=== PATIENT | female | born 1970 | race Caucasian/White ===

== ENCOUNTER → 2024-04-23 | Outpatient (CLI) | payer OTHER ==
[~2024-04-23] MED LIST: CETIRIZINE10 MG PO; DIOVAN40 MG PO; Ondansetron4 MG PO; SINGULAIR10 M1 PO; VALIUM5 MG PO
[2024-04-23 11:28] LABS: BASO # 0.1 10*3/uL (0.0-0.1); BASO % 0.5 % (0.0-1.0); EOS # 0.1 10*3/uL (0.0-0.4); EOS % 0.5 % (1.0-4.0); HEMATOCRIT 38.6 % (37.0-47.0); MEAN CELL VOLUME 95.1 fl (81.0-99.0); MEAN CORPUSCULAR HGB 30.5 pg (27.0-31.0); MEAN CORPUSCULAR HGB CONC 32.1 g/dl (33.0-37.0); MEAN PLATELET VOLUME 10.3 fl (9.6-12.3); MONO # 0.7 10*3/uL (0.1-1.0); MONO % 6.4 % (3.0-9.0); NEUT # 7.4 10*3/uL (2.3-7.9); NEUT % 71.9 % (47.0-73.0); PLATELET COUNT AUTOMATED 459 10*3/uL (130-400); RED BLOOD COUNT 4.06 10*6/uL (4.10-5.10); WHITE BLOOD COUNT 10.2 10*3/uL (4.8-10.8)
[2024-04-23 11:46] LABS: BILIRUBIN Negative (Negative); BLOOD Negative (Negative); CLARITY Clear (Clear); COLOR Yellow (Yellow); GLUCOSE Negative (Negative); KETONE Negative (Negative); LEUKO ESTERASE Negative (Negative); NITRITE Negative (Negative); PH 6.5 (4.5-8.0)
[2024-04-23 12:00] LABS: ALKALINE PHOSPHATASE 364 U/L (46-116); BUN 11 mg/dl (9-23); CHLORIDE 102 mmol/L (98-107); LIPASE 59 U/L (12-53); POTASSIUM 3.3 mmol/L (3.4-5.1); RBC 0-2 rbc/hpf (0-2); SGPT/ALT 114 U/L (5-49); TOTAL PROTEIN 7.5 gm/dL (6.0-8.0); WBC 0-2 wbc/hpf (0-5)
[2024-04-24 05:05] LABS: HBsAG SCREEN Negative (Negative); HCV Ab Non Reactive (Non Reactive); HEP B CORE Ab, IgM Negative (Negative)
[2024-04-24 08:06] LABS: CYTOMEGALOVIRUS AB, IGG >10.00 U/mL (0.00-0.59)
== END | disposition home or self-care (01) ==
LOC: LAB 11:00
PROVIDERS: ATTEND Internal Medicine
DX: R53.83 Other fatigue (principal); R30.0 Dysuria; L29.9 Pruritus, unspecified; R51.9 Headache, unspecified

== ENCOUNTER → 2024-04-24 | Outpatient (CLI) | payer OTHER ==
[2024-04-24 08:47] LABS: ALKALINE PHOSPHATASE 335 U/L (46-116); BUN 11 mg/dl (9-23); CHLORIDE 105 mmol/L (98-107); LIPASE 49 U/L (12-53); POTASSIUM 3.2 mmol/L (3.4-5.1); SGPT/ALT 102 U/L (5-49); TOTAL PROTEIN 6.9 gm/dL (6.0-8.0)
== END | disposition home or self-care (01) ==
LOC: LAB 02:06
PROVIDERS: ATTEND Internal Medicine
DX: K80.20 Calculus of gallbladder without cholecystitis without obstruction (principal); R10.9 Unspecified abdominal pain

== ENCOUNTER 2024-04-25 00:12 | Inpatient (IN) | payer OTHER ==
[~2024-04-25] VITALS: Ht 165.1 cm; Wt 27.4 kg
[2024-04-25 10:32] LABS: ALKALINE PHOSPHATASE 321 U/L (46-116); BUN 12 mg/dl (9-23); CHLORIDE 109 mmol/L (98-107); POTASSIUM 3.2 mmol/L (3.4-5.1); SGPT/ALT 97 U/L (5-49); TOTAL PROTEIN 6.8 gm/dL (6.0-8.0)
[2024-04-25] MEDS ORDERED: BISACODYL 5 MG TAB PO PRN (16:25)
[2024-04-25] MEDS ORDERED: Ondansetron Hydrochloride 4 MG/2 ML VIAL IV PRN (16:25)
[2024-04-25] MEDS ORDERED: BISACODYL 10 MG SUPP R PRN (16:25)
[2024-04-25] MEDS ORDERED: Magnesium Hydroxide 30 ML UDC PO PRN (16:25)
[2024-04-25] MEDS ORDERED: TEMAZEPAM 15 MG CAP PO PRN (16:25)
[2024-04-25] MEDS ORDERED: fentaNYL CITRATE 100 MCG/2 ML VIAL IV PRN (16:35)
[2024-04-25] MEDS ORDERED: POTASSIUM CL/0.9% SODIUM CL 1,000 ML IV SCH (16:35)
[2024-04-25 16:39] VITALS: BP 133/77
[2024-04-25] MEDS ORDERED: Potassium Bicarbonate/Potass 25 MEQ TAB PO ONE (17:15)
[2024-04-25] MEDS ORDERED: hydrOXYzine 50 MG CAP PO PRN (17:20)
[2024-04-25] MEDS ORDERED: hydrOXYzine pamoate 25 MG CAP PO ONE (17:20)
[2024-04-25] MEDS ORDERED: SINGULAIR10 M1 PO (17:52)
[2024-04-25] MEDS ORDERED: Ondansetron4 MG PO (17:53)
[2024-04-25] MEDS ORDERED: VALIUM5 MG PO (17:54)
[2024-04-25] MEDS ORDERED: DIOVAN40 MG PO (18:31)
[2024-04-25] MEDS ORDERED: CETIRIZINE10 MG PO (18:32)
[2024-04-25 20:00] VITALS: BP 111/64
[2024-04-25] MEDS ORDERED: diazePAM 5 MG TAB PO SCH (22:00)
[2024-04-26] VITALS (12 sets, daily range): BP systolic 109–129; BP diastolic 60–77
[2024-04-26] MEDS ORDERED: diphenhydrAMINE hydrochloride 50 MG/ML VIAL IV ONE (05:45)
[2024-04-26 05:49] LABS: ALKALINE PHOSPHATASE 289 U/L (46-116); BUN 8 mg/dl (9-23); CHLORIDE 107 mmol/L (98-107); CHOLESTEROL 151 mg/dL (<200); LDL CHOLESTEROL 110 mg/dL (9-159); POTASSIUM 3.5 mmol/L (3.4-5.1); SGPT/ALT 102 U/L (5-49); TRIGLYCERIDES 102 mg/dl (<150)
[2024-04-26] MEDS ORDERED: Pantoprazole Sodium 40 MG VIAL IV SCH (06:00)
[2024-04-26 06:09] LABS: BASO % 0.3 % (0.0-1.0); EOS # 0.1 10*3/uL (0.0-0.4); EOS % 0.9 % (1.0-4.0); HEMATOCRIT 34.3 % (37.0-47.0); MEAN CELL VOLUME 95.5 fl (81.0-99.0); MEAN CORPUSCULAR HGB 30.6 pg (27.0-31.0); MEAN CORPUSCULAR HGB CONC 32.1 g/dl (33.0-37.0); MEAN PLATELET VOLUME 10.9 fl (9.6-12.3); MONO # 0.6 10*3/uL (0.1-1.0); MONO % 7.2 % (3.0-9.0); NEUT # 5.5 10*3/uL (2.3-7.9); NEUT % 68.7 % (47.0-73.0); PLATELET COUNT AUTOMATED 394 10*3/uL (130-400); RED BLOOD COUNT 3.59 10*6/uL (4.10-5.10); RED CELL DISTRI WIDTH 15.1 % (0-14.5)
[2024-04-26 07:35] LABS: VITAMIN D, 25-HYDROXY 57.2 ng/mL (30-100)
[2024-04-26 07:48] LABS: LIPASE 54 U/L (12-53)
[2024-04-26] MEDS ORDERED: Glucagon Hydrochloride 1 MG SYR IV ONE (08:40)
[2024-04-26] MEDS ORDERED: ceFAZolin sodium/sodium chlor 20 ML IV ONE (09:45)
[2024-04-26] MEDS ORDERED: Losartan Potassium 25 MG TAB PO SCH (10:00)
[2024-04-26] MEDS ORDERED: Montelukast Sodium 10 MG TAB PO SCH (10:00)
[2024-04-26] MEDS ORDERED: Enoxaparin Sodium 40 MG/0.4 ML SYR SC SCH (10:00)
[2024-04-26] MEDS ORDERED: Cetirizine Hydrochloride 10 MG TAB PO SCH (10:00)
[2024-04-26] MEDS ORDERED: Lactated Ringer's Solution 1,000 ML IV ONE (10:12)
[2024-04-26] MEDS ORDERED: SODIUM CHLORIDE 0.9% 100 ML IV ONE (10:20)
[2024-04-26] MEDS ORDERED: BUPivacaine 0.5% 30 ML IV ONE (10:20)
[2024-04-26] MEDS ORDERED: IOHEXOL 240 MG/ML 20 ML SOL ONE (10:22)
[2024-04-26] MEDS ORDERED: HYDROmorphONE Hydrochloride 0.5 MG/0.5 ML SYRINGE IV ONE ×2 (12:15)
[2024-04-26] MEDS ORDERED: HYDROmorphONE Hydrochloride 0.5 MG/0.5 ML SYRINGE ONE ×2 (12:30→12:56)
[2024-04-26] MEDS ORDERED: diazePAM 5 MG TAB PO PRN (13:00)
[2024-04-26] MEDS ORDERED: MORPHINE Sulfate 2 MG/ML SYR IV PRN (14:20)
[2024-04-26] MEDS ORDERED: ROCURONIUM BROMIDE 50 MG/5 ML SYRINGE IV ONE (15:20)
[2024-04-26] MEDS ORDERED: Lidocaine Hydrochloride 5 ML VIAL IV ONE (15:20)
[2024-04-26] MEDS ORDERED: SUGAMMADEX SODIUM 200 MG/2 ML VIAL IV ONE (15:20)
[2024-04-26] MEDS ORDERED: fentaNYL CITRATE 100 MCG/2 ML VIAL IV ONE (15:20)
[2024-04-26] MEDS ORDERED: Dexamethasone Sodium Phospha 4 MG/ML VIAL IV ONE (15:20)
[2024-04-26] MEDS ORDERED: Ketorolac Tromethamine 30 MG/ML VIAL IV ONE (15:20)
[2024-04-26] MEDS ORDERED: Midazolam Hydrochloride 2 MG/2 ML VIAL IV ONE (15:20)
[2024-04-26] MEDS ORDERED: PROPOFOL 200 MG/20 ML VIAL IV ONE (15:20)
[2024-04-26] MEDS ORDERED: Ondansetron Hydrochloride 4 MG/2 ML VIAL IV ONE (15:20)
[2024-04-27] VITALS: BP 121/66
[2024-04-27] MEDS ORDERED: traMADol Hydrochloride 50 MG TAB PO PRN (03:25)
[2024-04-27] MEDS ORDERED: traMADol Hydrochloride 50 MG TAB PO ONE (03:54)
[2024-04-27 06:33] LABS: BASO % 0.2 % (0.0-1.0); EOS # 0.1 10*3/uL (0.0-0.4); EOS % 0.3 % (1.0-4.0); HEMATOCRIT 33.3 % (37.0-47.0); MEAN CELL VOLUME 93.5 fl (81.0-99.0); MEAN CORPUSCULAR HGB 30.6 pg (27.0-31.0); MEAN CORPUSCULAR HGB CONC 32.7 g/dl (33.0-37.0); MEAN PLATELET VOLUME 10.9 fl (9.6-12.3); MONO % 6.7 % (3.0-9.0); NEUT # 11.9 10*3/uL (2.3-7.9); NEUT % 79.1 % (47.0-73.0); PLATELET COUNT AUTOMATED 423 10*3/uL (130-400); RED BLOOD COUNT 3.56 10*6/uL (4.10-5.10); RED CELL DISTRI WIDTH 14.8 % (0-14.5)
[2024-04-27 07:30] LABS: ALKALINE PHOSPHATASE 285 U/L (46-116); BUN 10 mg/dl (9-23); CHLORIDE 106 mmol/L (98-107); POTASSIUM 3.4 mmol/L (3.4-5.1); SGPT/ALT 123 U/L (5-49); TOTAL PROTEIN 5.7 gm/dL (6.0-8.0)
[2024-04-27 08:00] VITALS: BP 120/69
[2024-04-27] MEDS ORDERED: ATARAX,VISTARIL50 MG PO (09:33)
[2024-04-27] MEDS ORDERED: EFFER-K25 MEQ PO (09:47)
[2024-04-27] MEDS ORDERED: OXYCODONE5 M1 PO (09:47)
== END 2024-04-27 11:15 | disposition home or self-care (01) | DRG 417 ==
LOC: LAB 00:12 → MRI 10:00 → LAB 10:00 → 4E 14:52
PROVIDERS: Nurse Practitioner; ADMIT Internal Medicine; ATTEND Internal Medicine
PROC: 0FT44ZZ Resection of Gallbladder, Percutaneous Endoscopic Approach (ICD-10-PCS; principal; 2024-04-26)
PROC: BF131ZZ Fluoroscopy of Gallbladder and Bile Ducts using Low Osmolar Contrast (ICD-10-PCS; 2024-04-26)
DX: K80.00 Calculus of gallbladder with acute cholecystitis without obstruction (principal); K85.10 Biliary acute pancreatitis without necrosis or infection; E87.6 Hypokalemia; J30.2 Other seasonal allergic rhinitis; K83.8 Other specified diseases of biliary tract; I10 Essential (primary) hypertension; Z90.711 Acquired absence of uterus with remaining cervical stump; Z80.3 Family history of malignant neoplasm of breast; Z80.1 Family history of malignant neoplasm of trachea, bronchus and lung

== ENCOUNTER → 2024-05-01 | Outpatient (CLI) | payer OTHER ==
[~2024-05-01] MED LIST changes: +ATARAX,VISTARIL50 MG PO; +EFFER-K25 MEQ PO; +OXYCODONE5 M1 PO
[2024-05-01 13:44] LABS: BASO # 0.1 10*3/uL (0.0-0.1); BASO % 0.6 % (0.0-1.0); EOS # 0.2 10*3/uL (0.0-0.4); HEMATOCRIT 37.5 % (37.0-47.0); MEAN CELL VOLUME 94.5 fl (81.0-99.0); MEAN CORPUSCULAR HGB 30.5 pg (27.0-31.0); MEAN CORPUSCULAR HGB CONC 32.3 g/dl (33.0-37.0); MEAN PLATELET VOLUME 10.6 fl (9.6-12.3); MONO # 0.6 10*3/uL (0.1-1.0); NEUT # 5.4 10*3/uL (2.3-7.9); NEUT % 68.8 % (47.0-73.0); PLATELET COUNT AUTOMATED 434 10*3/uL (130-400); RED BLOOD COUNT 3.97 10*6/uL (4.10-5.10); WHITE BLOOD COUNT 7.8 10*3/uL (4.8-10.8)
[2024-05-01 14:26] LABS: ALKALINE PHOSPHATASE 298 U/L (46-116); BUN 16 mg/dl (9-23); CHLORIDE 106 mmol/L (98-107); POTASSIUM 3.5 mmol/L (3.4-5.1); SGPT/ALT 120 U/L (5-49); TOTAL PROTEIN 6.8 gm/dL (6.0-8.0)
== END | disposition home or self-care (01) ==
LOC: LAB 12:58
PROVIDERS: ATTEND Internal Medicine
DX: E87.6 Hypokalemia (principal); K81.0 Acute cholecystitis; R79.89 Other specified abnormal findings of blood chemistry

== ENCOUNTER → 2024-05-08 | Outpatient (CLI) | payer OTHER ==
[2024-05-08 10:27] LABS: ALKALINE PHOSPHATASE 264 U/L (46-116); BUN 12 mg/dl (9-23); CHLORIDE 108 mmol/L (98-107); POTASSIUM 3.9 mmol/L (3.4-5.1); SGPT/ALT 138 U/L (5-49); TOTAL PROTEIN 6.7 gm/dL (6.0-8.0)
== END | disposition home or self-care (01) ==
LOC: LAB 01:15
PROVIDERS: ATTEND Internal Medicine
DX: R74.01 Elevation of levels of liver transaminase levels (principal)

== ENCOUNTER → 2024-05-25 | Outpatient (CLI) | payer OTHER ==
[2024-05-25 11:33] LABS: BASO # 0.1 10*3/uL (0.0-0.1); BASO % 0.7 % (0.0-1.0); EOS # 0.1 10*3/uL (0.0-0.4); EOS % 1.6 % (1.0-4.0); HEMATOCRIT 37.3 % (37.0-47.0); MEAN CORPUSCULAR HGB 29.6 pg (27.0-31.0); MEAN CORPUSCULAR HGB CONC 33.2 g/dl (33.0-37.0); MEAN PLATELET VOLUME 10.4 fl (9.6-12.3); MONO # 0.7 10*3/uL (0.1-1.0); MONO % 8.9 % (3.0-9.0); NEUT # 3.9 10*3/uL (2.3-7.9); NEUT % 52.4 % (47.0-73.0); PLATELET COUNT AUTOMATED 255 10*3/uL (130-400); RED BLOOD COUNT 4.19 10*6/uL (4.10-5.10); RED CELL DISTRI WIDTH 13.4 % (0-14.5); WHITE BLOOD COUNT 7.3 10*3/uL (4.8-10.8)
[2024-05-25 11:57] LABS: ALKALINE PHOSPHATASE 186 U/L (46-116); BUN 13 mg/dl (9-23); CHLORIDE 104 mmol/L (98-107); POTASSIUM 3.9 mmol/L (3.4-5.1); SGPT/ALT 54 U/L (5-49); TOTAL PROTEIN 6.9 gm/dL (6.0-8.0)
== END | disposition home or self-care (01) ==
LOC: LAB 10:34
PROVIDERS: ATTEND Internal Medicine
DX: R79.89 Other specified abnormal findings of blood chemistry (principal)

== ENCOUNTER → 2024-08-06 | Outpatient (CLI) | payer OTHER ==
[2024-08-06 08:44] LABS: BASO # 0.1 10*3/uL (0.0-0.1); BASO % 0.7 % (0.0-1.0); EOS # 0.1 10*3/uL (0.0-0.4); EOS % 0.9 % (1.0-4.0); HEMATOCRIT 38.1 % (37.0-47.0); MEAN CELL VOLUME 84.5 fl (81.0-99.0); MEAN CORPUSCULAR HGB 27.7 pg (27.0-31.0); MEAN CORPUSCULAR HGB CONC 32.8 g/dl (33.0-37.0); MEAN PLATELET VOLUME 10.5 fl (9.6-12.3); MONO # 0.6 10*3/uL (0.1-1.0); MONO % 8.1 % (3.0-9.0); NEUT # 4.2 10*3/uL (2.3-7.9); NEUT % 59.2 % (47.0-73.0); PLATELET COUNT AUTOMATED 256 10*3/uL (130-400); RED BLOOD COUNT 4.51 10*6/uL (4.10-5.10); RED CELL DISTRI WIDTH 15.6 % (0-14.5)
[2024-08-06 09:55] LABS: ALKALINE PHOSPHATASE 160 U/L (46-116); BUN 16 mg/dl (9-23); CHLORIDE 103 mmol/L (98-107); CHOLESTEROL 119 mg/dL (<200); LDL CHOLESTEROL 57 mg/dL (9-159); POTASSIUM 3.2 mmol/L (3.4-5.1); SGPT/ALT 35 U/L (5-49); TOTAL PROTEIN 6.8 gm/dL (6.0-8.0); TRIGLYCERIDES 45 mg/dl (<150)
== END | disposition home or self-care (01) ==
LOC: LAB 08-03 01:27
PROVIDERS: ATTEND Family Medicine
DX: R74.01 Elevation of levels of liver transaminase levels (principal)